=== PATIENT | female | born 1970 | race American Indian/Alaskan Native ===

== ENCOUNTER 2016-07-07 11:49 | Day surgery (SDC) | payer OTHER ==
--- NOTE | 2016-07-07 10:00 | Short Stay Summary ---
Short Stay Documentation Date of service: 07/07/16 - History H&P: obtained from office - Allergies and Medications Current Medications: Allergies No Known Allergies Allergy (Unverified 04/29/15 08:40) Home Medications Medication Instructions Recorded Confirmed Last Taken Type Cyanocobalamin (Vitamin B-12) 2,500 mcg PO DAILY 04/29/15 07/06/16 07/08/14 History [Vitamin B12] Cefuroxime Axetil [Ceftin] 500 mg PO Q12H 07/06/16 07/06/16 Unknown History - Brief post op/procedure progress note Date of procedure: 07/07/16 Pre-op diagnosis: rt renal stone Post-op diagnosis: same Procedure: right rpg cysto, rt 6x28 stent; right ESWL Anesthesia: GETA Findings: large stones mid and lp calyx; smaller in up; none in renal pelvis Surgeon: JEB MARSH Estimated blood loss: minimal Pathology: none Condition: stable - Hospital course Hospital course: or pacu home - Disposition Condition at discharge: Good Disposition: DISCHARGED TO HOME OR SELFCARE Short Stay Discharge Plan Activity: advance as tolerated Diet: advance as tolerated Follow up with: JEB MARSH MD [Staff Physician] - 7 Days
[2016-07-07] MEDS ORDERED: NACL BACTERIOSTATIC INFILTRATI ONE (13:36)
--- NOTE | 2016-07-07 13:52 | Anesthesia Consultation ---
Anesthesia Consult and Med Hx Date of service: 07/07/16 - Airway Anesthetic Teeth Evaluation: Good ROM Head & Neck: Adequate Mental/Hyoid Distance: Adequate Mallampati Class: Class II Intubation Access Assessment: Probably Good - Pulmonary Exam CTA: Yes - Cardiac Exam Cardiac Exam: RRR - Pre-Operative Health Status ASA Pre-Surgery Classification: ASA2 Proposed Anesthetic Plan: General - Pulmonary Hx Smoking: No SOB: Yes (W/EXERTION) Hx Pneumonia: Yes (CHILDHOOD 12 Y/O) Hx Sleep Apnea: No - Cardiovascular System Hx Cardia Arrhythmia: No Hx Heart Murmur: No - Central Nervous System Hx Neuromuscular Disorder: No Hx Seizures: No CVA: No Hx Back Pain: No Hx Psychiatric Problems: No - Gastrointestinal Hx Ulcer: No Hx Gastroesophageal Reflux Disease: No - Endocrine Hx Renal Disease: No Hx End Stage Renal Disease: No Hx Cirrhosis: No Hx Liver Disease: No Hx Insulin Dependent Diabetes: No Hx Non-Insulin Dependent Diabetes: No Hx Thyroid Disease: No Hx Hypothyroidism: No Hx Hyperthyroidism: No - Hematic Hx Anemia: No Hx Sickle Cell Disease: No - Other Systems Hx Alcohol Use: No Hx Substance Use: No Hx Cancer: No Hx Obesity: Yes
--- NOTE | 2016-07-07 13:52 | Anesthesia Day of Surgery ---
Anesthesia Day of Surgery - Day of Surgery Patient Examined: Yes Patient H&P Reviewed: Yes Patient is NPO: Yes
[2016-07-07] MEDS ORDERED: PEPCID PO NR (14:00)
[2016-07-07] MEDS ORDERED: VERSED IV NR (14:00)
[2016-07-07] MEDS ORDERED: LACTATED RINGERS 1,000 ML IV SCH (14:00)
[2016-07-07] MEDS ORDERED: ANCEF/STERILE WATER 2 GM/20 ML IV NR (15:00)
[2016-07-07] MEDS ORDERED: XYLOCAINE MPF 2% ONE (16:58)
[2016-07-07] MEDS ORDERED: DIPRIVAN 10 MG/ML IV ONE (16:58)
[2016-07-07] MEDS ORDERED: DILAUDID ONE (16:58)
[2016-07-07] MEDS ORDERED: WATER FOR IRRIG STERILE IR ONE ×2 (17:05)
[2016-07-07] MEDS ORDERED: OMNIPAQUE 300 MG/50 ML (CATH LAB) IV ONE (17:05)
[2016-07-07] MEDS ORDERED: ZOFRAN ONE (17:53)
[2016-07-07] MEDS ORDERED: DECADRON ONE (17:53)
[2016-07-07] MEDS ORDERED: ePHEDrine SULFATE ONE (18:44)
[2016-07-07 21:19] VITALS: BP 128/80
--- NOTE | 2016-07-15 15:08 | Operative Report ---
UROLOGY OPERATIVE NOTE PREOPERATIVE DIAGNOSIS: Right renal stones. POSTOPERATIVE DIAGNOSIS: Right renal stones with right renal large stone, 10+ mm. SURGEON: Layton Richards MD ANESTHESIA: General. SPECIMENS: None. ESTIMATED BLOOD LOSS: Minimal. COMPLICATIONS: None. PROCEDURE: Right RPG, right cystoscopy, right 6 x 28 double-J stent, right ESWL. FINDINGS: Large stones, mid and lower pole of calyx, small in upper pole, none in renal pelvis. CLINICAL INDICATIONS: The patient was counseled. She was also counseled on percutaneous nephrolithotomy. Decided wanted to try ESWL. On CT scan review, had antibiotics and SCDs. CT scan reviewed. There seemed to be two stones, possibly one more at the mid calyx, could possibly causing intermittent obstruction and the one in the lower pole and then stones in the upper pole. Two lower stones were large but the more central one being about 10-12 mm. It was elected to possibly proceed and target the more central area stone. DESCRIPTION OF PROCEDURE: The patient was transferred to OR suite, supine position, anesthesia, dorsal lithotomy, prepped and draped in standard fashion. A 22 Divehi scope passed. Pancystoscopy demonstrates no tumors. Right UO visualized contrast injected, confirmed position of stones. Next, a guidewire passed 6 x 28 double-J stent passed and confirmed good proximal and distal J. At this point, the patient was positioned to supine position. Biplanar fluoroscopy was used to target the stone with an F2. There was good visualization of the stone. We target the stone that was more in the mid calyx. This was not obstructing. On the retrograde, there was no obstructing renal pelvis stone, just there is the on the lower pole, one large stone in the mid calyx, and then small or something in the upper pole. At this point, 2500 shocks were delivered. Intermittent repositioning done as necessary. At the end of procedure, mild decrease density. The patient was awakened, transferred to PACU in good stable condition. JOB# [id number] ATS/NTS
== END 2016-07-07 21:15 | disposition home or self-care (01) ==
LOC: OR 11:49
PROVIDERS: ATTEND Urology
DX: N20.0 Calculus of kidney (principal); N39.0 Urinary tract infection, site not specified; I10 Essential (primary) hypertension; Z87.891 Personal history of nicotine dependence; Z80.0 Family history of malignant neoplasm of digestive organs; Z82.49 Family history of ischemic heart disease and other diseases of the circulatory system; Z83.3 Family history of diabetes mellitus
CPT/HCPCS: 50590; 52332; 81025; A4217; C1758; C1769; C2617; J0690; J1100; J1170; J2250; J2405; J2704; J7120; Q9967

== ENCOUNTER 2016-08-08 09:00 | Inpatient (IN) | payer OTHER ==
[~2016-08-08 09:00] MED LIST: ANCEF/STERILE WATER 2 GM/20 ML 2 GM/20 ML SYRINGE IV NR; NACL 0.9% 1000 ML 1,000 ML IV SCH
[2016-08-08] MEDS ORDERED: NACL 0.9% 500 ML 500 ML IV SCH (10:00)
[2016-08-08 10:21] LABS: Basophils % (Auto) 1.1 % (0.0-1.8); Eosinophils % (Auto) 3.6 % (0.0-4.3); Hematocrit 31.9 % (30.3-42.9); Hemoglobin 10.3 gm/dl (10.1-14.3); Mean Corpuscular HGB Conc 32 % (30-34); Mean Corpuscular Hemoglobin 27 pg (28-32); Mean Corpuscular Volume 83 fl (79-97); Platelet Count 336 K/mm3 (140-440); Red Blood Count 3.84 M/mm3 (3.65-5.03); Red Cell Distribution Width 14.7 % (13.2-15.2); White Blood Count 5.3 K/mm3 (4.5-11.0)
[2016-08-08 10:22] LABS: INR 0.98 (0.87-1.13)
[2016-08-08 10:23] LABS: Partial Thromboplastin Time 25.7 Sec. (24.2-36.6)
[2016-08-08 10:27] LABS: Alanine Aminotransferase 13 units/L (7-56); Albumin 3.7 g/dL (3.9-5); Albumin/Globulin Ratio 1.1 %; Alkaline Phosphatase 43 units/L (35-129); Anion Gap 16 mmol/L; BUN/Creatinine Ratio 6.66; Bilirubin,Total 0.3 mg/dL (0.1-1.2); Blood Urea Nitrogen 6 mg/dL (7-17); Calcium 8.8 mg/dL (8.4-10.2); Carbon Dioxide 23 mmol/L (22-30); Glucose 104 mg/dL (65-100); Sodium 138 mmol/L (137-145); Total Protein 7.2 g/dL (6.3-8.2)
[2016-08-08] MEDS ORDERED: XYLOCAINE 1% MPF 5 mL INFILTRATI ONE (10:58)
[2016-08-08] MEDS ORDERED: ROCEPHIN 500 MG in NACL 0.9% 50 ML IV NR (11:00)
[2016-08-08] MEDS ORDERED: NACL 0.9% 500 ML 500 ML ONE ×2 (12:00→12:01)
[2016-08-08] MEDS ORDERED: XYLOCAINE 2% INFILTRATI ONE (12:00)
[2016-08-08] MEDS ORDERED: ANCEF/STERILE WATER 2 GM/20 ML 2 GM/20 ML SYRINGE IV ONE (12:09)
[2016-08-08] MEDS: VERSED ONE ×8 (12:27→13:21)
[2016-08-08] MEDS: SUBLIMAZE ONE ×6 (12:27→13:08)
[2016-08-08] MEDS ORDERED: DILAUDID ONE ×2 (12:55→13:08)
[2016-08-08] MEDS ORDERED: NARCAN 0.4 MG/1 ML IV PRN (13:26)
--- NOTE | 2016-08-08 13:34 | Operative Report ---
Operative Report Operative Report: EXAM: ULTRASOUND AND FLUOROSCOPIC GUIDED PLACEMENT OF NEPHROSTOMY TUBE ULTRASOUND AND FLUOROSCOPIC GUIDED PLACEMENT OF NEPHROURETERAL STENT CLINICAL INDICATION: PATIENT WITH OBSTRUCTING RIGHT RENAL STONES DATE: 08/08/2016 PROCEDURE: Following an explanation of the risks, benefits and alternatives; written informed consent was obtained. The patient was brought to the angiographic suite and placed in a position on the examination table. Initial ultrasound survey of the right kidney demonstrated no hydronephrosis. Patient' s right back and flank were prepped and draped in the usual sterile fashion. 1 % lidocaine was used for anesthesia. Initial attempts at ultrasound guidance to cannulate kidney were unsuccessful secondary to the depth. The patient was position on the examination table with Kammer pointed in the AP position. A 15 cm x 21-gauge needle was advanced 11 cm deep subcutaneous tissue and into the renal parenchyma. The needle was directed at the pigtail of a proximal ureteral stent. Upon entry into the kidney, a 0.018 guidewire was then advanced through the needle and advanced on the proximal ureter. The needle was removed and the inner portion of an AccuStick transition dilator was advanced over the guidewire. The stiffener and guidewire were removed and contrast was used to opacified the calyces. A posterior middle calyx was then chosen for cannulation. Using fluoroscopic triangulation, a 15 cm I 21-gauge needle was advanced approximately 11 cm deep through the subcutaneous tissue into her a posterior middle calyx. A 0.018 guidewire was admitted advanced through the needle into the renal pelvis. The needle was removed and AccuStick transition dilator placed over the guidewire. The 0.018 guidewire and inner trocar were removed. Contrast was injected through the transition dilator and the transition dry dilator retracted slightly to position it within the central aspect of the renal pelvis. A 0.035 stiff Glidewire was advanced through the AccuStick transition dilator and down the proximal ureter. The guidewire was advanced to the bladder. A 4 Fijian vertebral catheter was then advanced over the guidewire to the bladder and the Glidewire exchanged for an Amplatz superstiff guidewire. The vertebral catheter was removed. A 7 Fijian 21 cm right hip sheath was then advanced over the Amplatz superstiff guidewire. The trocar was removed and used to place a second 0.035 guidewire [id number] the Amplatz guidewire. Following serial dilation over the guidewire, a 5 Fijian pigtail catheter was then advanced over the guidewire and the distal pigtail placed within the bladder. The guidewire was removed. Additional serial dilation was performed and an 8 Fijian nephrostomy tube was placed over the guidewire and advanced to position the central aspect of the pigtail within the renal pelvis. Gentle injection of contrast was performed to document appropriate positioning through the posterior middle calyx into the renal pelvis. At this point, both catheters were securely fastened of the skin surface using a 2-0 Ethilon suture at the skin surface. The nephroureteral tube was then coiled capped. The nephrostomy tube was placed to dependent drainage. Sterile dressings were then placed over both tubes. Patient tolerated the seizure well. There were no immediate post procedure complications. Given the depth of the kidney, the patient will likely experience significant postoperative pain and a BLEACH MAKER was ordered. IMPRESSION: 1) Ultrasound evaluation of kidney demonstrating no hydronephrosis. 2) Fluoroscopic guided placement of a 5 Fijian nephroureteral stent. 3) Fluoroscopic guided placement of an 8 Fijian nephrostomy tube.
--- NOTE | 2016-08-08 13:36 | Short Stay Summary ---
Short Stay Documentation Date of service: 08/08/16 - History Principal diagnosis: Right nephrolithiasis Past Medical History: other (bilateral nephrolithiasis) Past Surgical History: Other (multiple urologic stone removal procedures) Social history: no significant social history - Allergies and Medications Current Medications: Allergies Sulfa (Sulfonamide Antibiotics) Adverse Reaction (Verified 08/08/16 09:19) Itching,VOMITING Home Medications Medication Instructions Recorded Confirmed Last Taken Type Cefuroxime Axetil [Cefuroxime] 500 mg PO BID 08/08/16 08/08/16 08/07/16 History 500mg Active Medications Cefazolin Sodium (Ancef/Sterile Water 2 Gm/20 Ml) 2 gm in 20 mls @ 80 mls/hr IV PREOP NR PRN Reason: Protocol Stop: 08/08/16 23:00 Sodium Chloride (Nacl 0.9% 500 Ml) 500 mls @ 50 mls/hr IV DIRECT PATSY Stop: 08/08/16 23:59 Last Admin: 08/08/16 11:54 Dose: 50 mls/hr Ceftriaxone Sodium 500 mg/ (Sodium Chloride) 50 mls @ 100 mls/hr IV PREOP NR Stop: 08/08/16 23:59 Last Admin: 08/08/16 12:30 Dose: 50 mls Dextrose/Sodium Chloride (D5ns) 1,000 mls @ 100 mls/hr IV DIRECT PATSY Sodium Chloride (Nacl 0.9% 1000 Ml) 1,000 mls @ 42 mls/hr IV DIRECT PATSY Morphine Sulfate (Morphine Workers Compensation Defense Attorney 30mg/30ml) 0 mg IV DIRECT PATSY PRN Reason: Protocol Naloxone HCl (Narcan 0.4 Mg/1 Ml) 0.1 mg IV Q2MIN PRN PRN Reason: Res Rate </= 8 or 02 SAT < 92% Ondansetron HCl (Zofran) 4 mg IV Q4H PRN PRN Reason: Nausea And Vomiting - Physical exam General appearance: no acute distress, obese HEENT: Atraumatic Lungs: Normal air movement Breasts: deferred Heart: Regular rate Gastrointestinal: normal Female Genitourinary: deferred Rectal Exam: deferred Extremities: no ischemia, No edema Neurological: Normal gait, Normal speech - Brief post op/procedure progress note Date of procedure: 08/08/16 Pre-op diagnosis: Right nephrolithiasis Post-op diagnosis: same Procedure: US and fluoro guided placement of 5 F NUS and 8 F Neph tube Anesthesia: local Surgeon: JAYLAN CABALLERO Estimated blood loss: minimal Pathology: none Condition: stable - Disposition Condition at discharge: Good Disposition: DC/TX SHORT-TERM GEN HOSP INPT Short Stay Discharge Plan Activity: advance as tolerated Weight Bearing Status: Weight Bear as Tolerated Diet: regular Wound: keep clean and dry, per your surgeon's advice Follow up with: PRIMARY CARE, [Primary Care Provider] - 7 Days
[2016-08-08] MEDS ORDERED: MORPHINE PCA 30MG/30ML IV SCH (14:00)
[2016-08-08] MEDS ORDERED: NACL 0.9% 1000 ML 1,000 ML IV SCH (14:00)
[2016-08-08] MEDS: ZOFRAN IV PRN ×2 (18:17→23:45)
[2016-08-08] MEDS: DILAUDID IV PRN ×2 (18:17→22:04)
[2016-08-08] MEDS: D5NS 1,000 ML IV SCH (18:19)
--- NOTE | 2016-08-08 23:44 | History and Physical Report ---
History of Present Illness Date of examination: 08/08/16 Date of admission: 08/08/16 11:22 Chief complaint: Rt Flank pain History of present illness: Direct admit after Nephrostomy tube placement for Rt Ureteric stone and R Hydronephrosis.For surgical removal of Ureteric stone tomorrow by Urology.No fever or chills.Pain 6/10.Better after Nephrostomy tube placement. Past History Past Medical History: No medical history, arthritis, other (bilateral nephrolithiasis) Past Surgical History: Other (multiple urologic stone removal procedures) Social history: no significant social history Medications and Allergies Allergies Allergy/AdvReac Type Severity Reaction Status Date / Time Sulfa (Sulfonamide AdvReac Itching,VOM Verified 08/08/16 09:19 Antibiotics) ITING Home Medications Medication Instructions Recorded Confirmed Last Taken Type Cefuroxime Axetil [Cefuroxime] 500 mg PO BID 08/08/16 08/08/16 08/07/16 History 500mg Active Meds: Active Medications Hydromorphone HCl (Dilaudid) 1 mg IV Q3H PRN PRN Reason: Pain , Severe (7-10) Last Admin: 08/08/16 18:17 Dose: 1 mg Hydromorphone HCl (Dilaudid) 2 mg IV Q3H PRN PRN Reason: Pain , Severe (7-10) Last Admin: 08/08/16 22:04 Dose: 2 mg Sodium Chloride (Nacl 0.9% 500 Ml) 500 mls @ 50 mls/hr IV DIRECT PATSY Stop: 08/08/16 23:59 Last Admin: 08/08/16 11:54 Dose: 50 mls/hr Ceftriaxone Sodium 500 mg/ (Sodium Chloride) 50 mls @ 100 mls/hr IV PREOP NR Stop: 08/08/16 23:59 Last Admin: 08/08/16 12:30 Dose: 50 mls Dextrose/Sodium Chloride (D5ns) 1,000 mls @ 100 mls/hr IV DIRECT PATSY Last Admin: 08/08/16 18:19 Dose: 100 mls/hr Ondansetron HCl (Zofran) 4 mg IV Q4H PRN PRN Reason: Nausea And Vomiting Last Admin: 08/08/16 18:17 Dose: 4 mg Review of Systems All systems: negative Exam - Constitutional Vitals: Temp Pulse Resp BP Pulse Ox 96.9 F L 79 20 117/65 99 08/08/16 20:00 08/08/16 20:00 08/08/16 22:04 08/08/16 20:00 08/08/16 20:00 General appearance: Present: no acute distress, well-nourished - EENT Eyes: Present: PERRL ENT: hearing intact, clear oral mucosa - Neck Neck: Present: supple, normal ROM - Respiratory Respiratory effort: normal Respiratory: bilateral: CTA - Cardiovascular Heart Sounds: Present: S1 & S2. Absent: rub, click - Extremities Extremities: pulses symmetrical, No edema Peripheral Pulses: within normal limits - Abdominal General gastrointestinal: Present: soft, non-tender, non-distended, normal bowel sounds Female genitourinary: Present: normal - Integumentary Integumentary: Present: clear, warm, dry - Musculoskeletal Musculoskeletal: gait normal, strength equal bilaterally - Psychiatric Psychiatric: appropriate mood/affect, intact judgment & insight - Neurologic Neurologic: CNII-XII intact, moves all extremities Results - Labs CBC & Chem 7: 08/08/16 09:48 08/08/16 09:48 Labs: Laboratory Last Values WBC 5.3 K/mm3 (4.5-11.0) 08/08/16 09:48 RBC 3.84 M/mm3 (3.65-5.03) 08/08/16 09:48 Hgb 10.3 gm/dl (10.1-14.3) 08/08/16 09:48 Hct 31.9 % (30.3-42.9) 08/08/16 09:48 MCV 83 fl (79-97) 08/08/16 09:48 MCH 27 pg (28-32) L 08/08/16 09:48 MCHC 32 % (30-34) 08/08/16 09:48 RDW 14.7 % (13.2-15.2) 08/08/16 09:48 Plt Count 336 K/mm3 (140-440) 08/08/16 09:48 Lymph % (Auto) 24.1 % (13.4-35.0) 08/08/16 09:48 Gregory % (Auto) 8.0 % (0.0-7.3) H 08/08/16 09:48 Eos % (Auto) 3.6 % (0.0-4.3) 08/08/16 09:48 Baso % (Auto) 1.1 % (0.0-1.8) 08/08/16 09:48 Lymph # 1.3 K/mm3 (1.2-5.4) 08/08/16 09:48 Gregory # 0.4 K/mm3 (0.0-0.8) 08/08/16 09:48 Eos # 0.2 K/mm3 (0.0-0.4) 08/08/16 09:48 Baso # 0.1 K/mm3 (0.0-0.1) 08/08/16 09:48 Seg Neutrophils % 63.2 % (40.0-70.0) 08/08/16 09:48 Seg Neutrophils # 3.4 K/mm3 (1.8-7.7) 08/08/16 09:48 PT 12.9 Sec. (12.2-14.9) 08/08/16 09:48 INR 0.98 (0.87-1.13) 08/08/16 09:48 APTT 25.7 Sec. (24.2-36.6) 08/08/16 09:48 Sodium 138 mmol/L (137-145) 08/08/16 09:48 Potassium 4.0 mmol/L (3.6-5.0) 08/08/16 09:48 Chloride 103.0 mmol/L (98-107) 08/08/16 09:48 Carbon Dioxide 23 mmol/L (22-30) 08/08/16 09:48 Anion Gap 16 mmol/L 08/08/16 09:48 BUN 6 mg/dL (7-17) L 08/08/16 09:48 Creatinine 0.9 mg/dL (0.7-1.2) 08/08/16 09:48 Estimated GFR > 60 ml/min 08/08/16 09:48 BUN/Creatinine Ratio 6.66 % 08/08/16 09:48 Glucose 104 mg/dL (65-100) H 08/08/16 09:48 Calcium 8.8 mg/dL (8.4-10.2) 08/08/16 09:48 Total Bilirubin 0.3 mg/dL (0.1-1.2) 08/08/16 09:48 AST 13 units/L (5-40) 08/08/16 09:48 ALT 13 units/L (7-56) 08/08/16 09:48 Alkaline Phosphatase 43 units/L (35-129) 08/08/16 09:48 Total Protein 7.2 g/dL (6.3-8.2) 08/08/16 09:48 Albumin 3.7 g/dL (3.9-5) L 08/08/16 09:48 Albumin/Globulin Ratio 1.1 % 08/08/16 09:48 HCG, Qual Negative (Negative) 08/08/16 09:48 Assessment and Plan Advance Directives: Yes VTE prophylaxis?: Chemical Plan of care discussed with patient/family: Yes - Patient Problems (1) Hydronephrosis with renal calculous obstruction Current Visit: Yes Status: Acute Plan to address problem: S/p Nephrostomy tube placement.For Urologic procedure tomorrow by Dr Richards. (2) Nephrostomy status Current Visit: Yes Status: Acute Plan to address problem: Had Nephrostomy tube-right placement today by Dr Recinos. (3) DVT prophylaxis Current Visit: Yes Status: Acute Plan to address problem: On Lovenox
[2016-08-09] MEDS: D5NS 1,000 ML IV SCH ×2 (04:51→22:42)
[2016-08-09] MEDS: DILAUDID IV PRN ×3 (04:59→20:09)
--- NOTE | 2016-08-09 08:07 | Admit Criteria Form ---
Admission Criteria Documentation: RENAL COLIC AND KIDNEY STONES Clinical Indications for Admission to Inpatient Care ( Place 'X' for any and all applicable criteria): Admission is indicated for ANY ONE of the following (1)(2)(3)(4): [X]I. Inpatient admission required rather than observation care (Also use Renal Colic and Kidney Stones: Observation Care Criteria as appropriate) because of ANY ONE of the following: [ ]a) Severe pain requiring acute inpatient management [ ]b) Urinary tract infection identified [ ]c) Vomiting that is severe or persistent [ ]d) IV fluid required rather than oral rehydration to replace significant ongoing (eg, for greater than 24 hours) losses (greater than 200 mL/hr or 3 L/m2 per day) [X]e) Percutaneous or open drainage (eg, abscess, biliary tract) procedures [ ]f) Other condition, treatment or monitoring requiring inpatient admission [ ]II. Impending acute renal failure [ ]III. Bilateral obstruction [ ]IV. Single kidney with obstruction [ ]V. Transplanted kidney with obstruction [ ]. Possible open surgical procedure needed (eg, pyonephrosis, stone removal not amendable to other means) [ ]VII. Hemodynamic instability Extended stay beyond goal length of stay may be needed for(2)(3)(31): [ ]a) Failed initial stone removal (32) [ ]b) Pyonephrosis [ ]c) Obstructive uropathy with urinary tract infection [ ]d) Procedure complications [ ]e) Comorbidities (22) The original [facility] content created by [employer] has been revised. The portions of the content which have been revised are identified through the use of italic text or in bold, and [facility] has neither reviewed nor approved the modified material. All other unmodified content is copyright [facility]. Please see references footnoted in the original [facility] edition 2016 Admission Criteria Met: Yes
[2016-08-09 12:07] LABS: Basophils % (Auto) 0.4 % (0.0-1.8); Eosinophils % (Auto) 1.3 % (0.0-4.3); Hematocrit 29.3 % (30.3-42.9); Hemoglobin 9.4 gm/dl (10.1-14.3); Mean Corpuscular HGB Conc 32 % (30-34); Mean Corpuscular Hemoglobin 27 pg (28-32); Mean Corpuscular Volume 84 fl (79-97); Platelet Count 300 K/mm3 (140-440); Red Blood Count 3.49 M/mm3 (3.65-5.03); Red Cell Distribution Width 14.7 % (13.2-15.2); White Blood Count 7.4 K/mm3 (4.5-11.0)
[2016-08-09 12:22] LABS: Anion Gap 16 mmol/L; BUN/Creatinine Ratio 6.25; Blood Urea Nitrogen 5 mg/dL (7-17); Calcium 8.3 mg/dL (8.4-10.2); Carbon Dioxide 25 mmol/L (22-30); Chloride 102.9 mmol/L (98-107); Glucose 108 mg/dL (65-100); Sodium 140 mmol/L (137-145)
--- NOTE | 2016-08-09 13:05 | Anesthesia Day of Surgery ---
Anesthesia Day of Surgery - Day of Surgery Patient Examined: Yes Patient H&P Reviewed: Yes Patient is NPO: Yes
--- NOTE | 2016-08-09 13:08 | Anesthesia Consultation ---
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 No prior anesthesia complications
[2016-08-09] MEDS ORDERED: ZEMURON IV ONE (13:37)
[2016-08-09] MEDS ORDERED: XYLOCAINE MPF 2% ONE (13:37)
[2016-08-09] MEDS ORDERED: DECADRON ONE (13:37)
[2016-08-09] MEDS ORDERED: NACL 0.9% 500 ML 500 ML IV NR (13:43)
[2016-08-09] MEDS ORDERED: NACL 0.9% 1000 ML 1,000 ML IV SCH (14:00)
[2016-08-09] MEDS ORDERED: PEPCID PO NR (14:00)
[2016-08-09] MEDS ORDERED: VERSED IV NR (14:00)
[2016-08-09] MEDS ORDERED: MINERAL OIL TOPICAL LIGHT TP ONE (15:35)
--- NOTE | 2016-08-09 16:39 | Event Note ---
attempted to see patient 3x, she was in OR, will return tomorrow
--- NOTE | 2016-08-09 17:59 | Post Operative Note ---
Date of procedure: 08/09/16 Pre-op diagnosis: right renal stones Post-op diagnosis: same Findings: right renal stones Procedure: rt pnl Anesthesia: HARITHA Surgeon: JEB MARSH Estimated blood loss: minimal Pathology: list (stone) Specimen disposition: to lab Condition: stable Disposition: PACU
--- NOTE | 2016-08-09 18:37 | Post Anesthesia Evaluation ---
- Post Anesthesia Evaluation Patient Participated: Yes Airway Patent: Yes Stable Respiratory Function: Yes Temp > 96.8F: Yes Pain Manageable: Yes Adequeate Hydration: Yes Anesthesia Complications: No Block Receding Appropriately: Not Applicable
[2016-08-09 19:13] LABS: Basophils % (Auto) 0.4 % (0.0-1.8); Eosinophils % (Auto) 0.4 % (0.0-4.3); Hematocrit 33.7 % (30.3-42.9); Hemoglobin 10.6 gm/dl (10.1-14.3); Mean Corpuscular HGB Conc 31 % (30-34); Mean Corpuscular Hemoglobin 27 pg (28-32); Mean Corpuscular Volume 86 fl (79-97); Platelet Count 286 K/mm3 (140-440); Red Blood Count 3.93 M/mm3 (3.65-5.03); Red Cell Distribution Width 15.1 % (13.2-15.2); White Blood Count 10.7 K/mm3 (4.5-11.0)
[2016-08-09 19:29] LABS: Anion Gap 18 mmol/L; BUN/Creatinine Ratio 6.25; Blood Urea Nitrogen 5 mg/dL (7-17); Calcium 7.9 mg/dL (8.4-10.2); Carbon Dioxide 22 mmol/L (22-30); Chloride 105.3 mmol/L (98-107); Glucose 114 mg/dL (65-100); Potassium 4.4 mmol/L (3.6-5.0); Sodium 141 mmol/L (137-145)
[2016-08-09] MEDS: ROCEPHIN/NS 2 GM/100 ML 2 GM/100 ML BAG IV SCH (19:56)
[2016-08-09] MEDS ORDERED: CHLORASEPTIC MM PRN (20:15)
[2016-08-09 21:24] LABS: Basophils % (Auto) 0.2 % (0.0-1.8); Eosinophils % (Auto) 0.3 % (0.0-4.3); Hematocrit 31.7 % (30.3-42.9); Hemoglobin 10.3 gm/dl (10.1-14.3); Mean Corpuscular HGB Conc 32 % (30-34); Mean Corpuscular Hemoglobin 27 pg (28-32); Mean Corpuscular Volume 84 fl (79-97); Platelet Count 290 K/mm3 (140-440); Red Blood Count 3.78 M/mm3 (3.65-5.03); Red Cell Distribution Width 14.9 % (13.2-15.2); White Blood Count 10.1 K/mm3 (4.5-11.0)
[2016-08-09 21:41] LABS: Anion Gap 18 mmol/L; BUN/Creatinine Ratio 6.25; Blood Urea Nitrogen 5 mg/dL (7-17); Calcium 7.9 mg/dL (8.4-10.2); Carbon Dioxide 22 mmol/L (22-30); Chloride 104.6 mmol/L (98-107); Glucose 121 mg/dL (65-100); Potassium 3.9 mmol/L (3.6-5.0); Sodium 141 mmol/L (137-145)
[2016-08-09] MEDS: PYRIDIUM PO SCH (22:38)
[2016-08-10] MEDS: DILAUDID IV PRN ×6 (00:36→19:58)
[2016-08-10 06:42] LABS: Basophils % (Auto) 0.6 % (0.0-1.8); Hematocrit 32.6 % (30.3-42.9); Hemoglobin 10.5 gm/dl (10.1-14.3); Mean Corpuscular HGB Conc 32 % (30-34); Mean Corpuscular Hemoglobin 27 pg (28-32); Mean Corpuscular Volume 84 fl (79-97); Platelet Count 284 K/mm3 (140-440); Red Blood Count 3.86 M/mm3 (3.65-5.03); Red Cell Distribution Width 15.1 % (13.2-15.2); White Blood Count 10.4 K/mm3 (4.5-11.0)
[2016-08-10] MEDS: PYRIDIUM PO SCH ×3 (06:50→21:13)
[2016-08-10 07:00] LABS: Chloride 103.4 mmol/L (98-107); Potassium 4.5 mmol/L (3.6-5.0); Sodium 137 mmol/L (137-145)
[2016-08-10 07:12] LABS: Anion Gap 13 mmol/L; BUN/Creatinine Ratio 4.44; Blood Urea Nitrogen 4 mg/dL (7-17); Calcium 8.2 mg/dL (8.4-10.2); Carbon Dioxide 25 mmol/L (22-30); Glucose 122 mg/dL (65-100)
--- NOTE | 2016-08-10 07:32 | Progress Note ---
Assessment and Plan laury renal stones -s/p right pnl - d/c wire and amezquita - ambulate - pt can be discharged home today / tomorrow from urology standpoint if cont to do well Subjective Date of service: 08/10/16 Principal diagnosis: Right nephrolithiasis Interval history: stent catht neph pain Objective - Constitutional Vitals: Vital Signs - 12hr 08/09/16 08/09/16 08/10/16 20:00 23:41 04:00 Temperature 98.8 F 99.0 F 98.6 F Pulse Rate [ 105 H 104 H 110 H Apical] Respiratory 22 22 22 Rate Blood Pressure 124/76 108/70 112/68 [Left Arm] O2 Sat by Pulse 98 99 96 Oximetry - Gastrointestinal Rectal Exam: other (back neph tube clear yellow tube) - Genitourinary Female genitourinary: other (cath clear) - Labs CBC & Chem 7: 08/10/16 06:22 08/10/16 06:22 Labs: Abnormal lab results 08/09/16 08/09/16 08/09/16 Range/Units 11:35 11:35 11:35 RBC 3.49 L (3.65-5.03) M/mm3 Hgb 9.4 L (10.1-14.3) gm/dl Hct 29.3 L (30.3-42.9) % MCH 27 L (28-32) pg Lymph % (Auto) (13.4-35.0) % [place] % (Auto) 8.3 H (0.0-7.3) % Lymph # 1.1 L (1.2-5.4) K/mm3 [place] # (0.0-0.8) K/mm3 Seg Neutrophils % 74.8 H (40.0-70.0) % Seg Neutrophils # (1.8-7.7) K/mm3 BUN 5 L (7-17) mg/dL Glucose 108 H (65-100) mg/dL Calcium 8.3 L (8.4-10.2) mg/dL Crossmatch See Detail 08/09/16 08/09/16 08/09/16 Range/Units 18:55 18:55 20:52 RBC (3.65-5.03) M/mm3 Hgb (10.1-14.3) gm/dl Hct (30.3-42.9) % MCH 27 L 27 L (28-32) pg Lymph % (Auto) 6.7 L 7.4 L (13.4-35.0) % [place] % (Auto) (0.0-7.3) % Lymph # 0.7 L 0.7 L (1.2-5.4) K/mm3 [place] # (0.0-0.8) K/mm3 Seg Neutrophils % 87.3 H 86.7 H (40.0-70.0) % Seg Neutrophils # 9.3 H 8.8 H (1.8-7.7) K/mm3 BUN 5 L (7-17) mg/dL Glucose 114 H (65-100) mg/dL Calcium 7.9 L (8.4-10.2) mg/dL Crossmatch 08/09/16 08/10/16 08/10/16 Range/Units 20:52 06:22 06:22 RBC (3.65-5.03) M/mm3 Hgb (10.1-14.3) gm/dl Hct (30.3-42.9) % MCH 27 L (28-32) pg Lymph % (Auto) 9.6 L (13.4-35.0) % [place] % (Auto) 8.2 H (0.0-7.3) % Lymph # 1.0 L (1.2-5.4) K/mm3 [place] # 0.9 H (0.0-0.8) K/mm3 Seg Neutrophils % 79.6 H (40.0-70.0) % Seg Neutrophils # 8.3 H (1.8-7.7) K/mm3 BUN 5 L 4 L (7-17) mg/dL Glucose 121 H 122 H (65-100) mg/dL Calcium 7.9 L 8.2 L (8.4-10.2) mg/dL Crossmatch
[2016-08-10] MEDS: DITROPAN PO SCH ×3 (08:30→21:13)
[2016-08-10] MEDS: ROCEPHIN/NS 2 GM/100 ML 2 GM/100 ML BAG IV SCH (09:22)
--- NOTE | 2016-08-10 09:47 | Fluoroscopy Report ---
Operative right nephrostomy: Initial image demonstrates the presence of a percutaneous right nephrostomy balloon with 2 guidewires extending into the ureter. There is a faint opacity in the central collecting system adjacent to the balloon. A subsequent images of demonstrates ill-defined contrast in the region of the kidney. This no definite calculus identified.
--- NOTE | 2016-08-10 15:04 | Discharge Summary ---
Providers - Providers Date of Admission: 08/10/16 13:00 Attending physician: JEREMY MOORE MD 08/09/16 09:09 Consult to Physician [CONS] Routine Consulting Provider: JEB MARSH Reason For Exam: R Ureteric stone Place consult to:: MARVIN ALMANZA Notified:: DR MARSH Phone number called:: [phone] Was contact made?: Yes If yes, spoke with:: JENNIFER Time called:: 10:21 Primary care physician: [employer]OR Hospitalization Condition: Good Procedures: Right Percutaneous nephrolithotomy Hospital course: 45-year-old woman who was a direct admits by the request of urology service for right-sided nephrolithiasis, for which she went on to have right-sided percutaneous nephrolithotomy. Patient clinically improves her labs and vital signs where unremarkable her hospital stay. Jones was discontinued and she was discharged in improved condition Discharge diagnosis 1. Renal calculus obstruction with hydronephrosis 2. Obstructive nephrolithiasis Disposition: DISCHARGED TO HOME OR SELFCARE Time spent for discharge: 35 minutes Core Measure Documentation - Palliative Care Palliative Care/ Comfort Measures: Not Applicable - Core Measures Any of the following diagnoses?: none Exam - Constitutional Vitals: Temp Pulse Resp BP Pulse Ox 99.7 F H 113 H 20 113/73 90 08/10/16 08:00 08/10/16 08:00 08/10/16 13:30 08/10/16 08:00 08/10/16 08:00 General appearance: Present: no acute distress, well-nourished - EENT Eyes: Present: PERRL ENT: hearing intact, clear oral mucosa - Neck Neck: Present: supple, normal ROM - Respiratory Respiratory effort: normal Respiratory: bilateral: CTA - Cardiovascular Heart Sounds: Present: S1 & S2. Absent: rub, click - Extremities Extremities: pulses symmetrical, No edema Peripheral Pulses: within normal limits - Abdominal General gastrointestinal: Present: soft, non-tender, non-distended, normal bowel sounds Female genitourinary: Present: normal - Integumentary Integumentary: Present: clear, warm, dry - Musculoskeletal Musculoskeletal: gait normal, strength equal bilaterally - Psychiatric Psychiatric: appropriate mood/affect, intact judgment & insight - Neurologic Neurologic: CNII-XII intact, moves all extremities Plan Follow up with: PRIMARY CAREMD [Primary Care Provider] - 7 Days Prescriptions: Oxybutynin [Ditropan] 5 mg PO TID #90 tablet Phenazopyridine [Pyridium] 200 mg PO Q8HR PRN #90 tablet PRN Reason: dysuria
--- NOTE | 2016-08-10 16:19 | Progress Note ---
Assessment and Plan Assessment and plan: 45-year-old woman who was a direct admits by the request of urology service after R nephrostomy tube placement by IR, for right-sided nephrolithiasis, for which she went on to have right-sided percutaneous nephrolithotomy. Patient clinically improves her labs and vital signs where unremarkable her hospital stay. Jones was discontinued 1. Obstructive uropathy Status post nephrostomy tube and right percutaneous nephrolithotomy, continue pain control, full he has been discontinued, Tentative discharge home tomorrow if pain is better controlled History Interval history: Complaining of frequent urination since Jones catheter, continues to have waning right-sided flank pain Hospitalist Physical - Physical exam Narrative exam: General: Moderate distress due to pain HEENT: MMM, EOMI cardiac: S1-S2 heard lungs: clear to auscultation, abdomen: soft, nontender, nondistended bowel sounds positive Right nephrostomy tube draining clear yellow urine extremities: no edema clubbing or cyanosis Skin: no rash or lesion Neuro: no focal deficit Psych: appropriate behavior and mood, cognition intact - Constitutional Vitals: Temp Pulse Resp BP Pulse Ox 99.7 F H 113 H 20 113/73 90 08/10/16 08:00 08/10/16 08:00 08/10/16 13:30 08/10/16 08:00 08/10/16 08:00 General appearance: Present: no acute distress, well-nourished Results - Labs CBC & Chem 7: 08/10/16 06:22 08/10/16 06:22 Labs: Laboratory Last Values WBC 10.4 K/mm3 (4.5-11.0) 08/10/16 06:22 RBC 3.86 M/mm3 (3.65-5.03) 08/10/16 06:22 Hgb 10.5 gm/dl (10.1-14.3) 08/10/16 06:22 Hct 32.6 % (30.3-42.9) 08/10/16 06:22 MCV 84 fl (79-97) 08/10/16 06:22 MCH 27 pg (28-32) L 08/10/16 06:22 MCHC 32 % (30-34) 08/10/16 06:22 RDW 15.1 % (13.2-15.2) 08/10/16 06:22 Plt Count 284 K/mm3 (140-440) 08/10/16 06:22 Lymph % (Auto) 9.6 % (13.4-35.0) L 08/10/16 06:22 Scott % (Auto) 8.2 % (0.0-7.3) H 08/10/16 06:22 Eos % (Auto) 2.0 % (0.0-4.3) 08/10/16 06:22 Baso % (Auto) 0.6 % (0.0-1.8) 08/10/16 06:22 Lymph # 1.0 K/mm3 (1.2-5.4) L 08/10/16 06:22 Scott # 0.9 K/mm3 (0.0-0.8) H 08/10/16 06:22 Eos # 0.2 K/mm3 (0.0-0.4) 08/10/16 06:22 Baso # 0.1 K/mm3 (0.0-0.1) 08/10/16 06:22 Seg Neutrophils % 79.6 % (40.0-70.0) H 08/10/16 06:22 Seg Neutrophils # 8.3 K/mm3 (1.8-7.7) H 08/10/16 06:22 PT 12.9 Sec. (12.2-14.9) 08/08/16 09:48 INR 0.98 (0.87-1.13) 08/08/16 09:48 APTT 25.7 Sec. (24.2-36.6) 08/08/16 09:48 Sodium 137 mmol/L (137-145) 08/10/16 06:22 Potassium 4.5 mmol/L (3.6-5.0) 08/10/16 06:22 Chloride 103.4 mmol/L (98-107) 08/10/16 06:22 Carbon Dioxide 25 mmol/L (22-30) 08/10/16 06:22 Anion Gap 13 mmol/L 08/10/16 06:22 BUN 4 mg/dL (7-17) L 08/10/16 06:22 Creatinine 0.9 mg/dL (0.7-1.2) 08/10/16 06:22 Estimated GFR > 60 ml/min 08/10/16 06:22 BUN/Creatinine Ratio 4.44 % 08/10/16 06:22 Glucose 122 mg/dL (65-100) H 08/10/16 06:22 Calcium 8.2 mg/dL (8.4-10.2) L 08/10/16 06:22 Total Bilirubin 0.3 mg/dL (0.1-1.2) 08/08/16 09:48 AST 13 units/L (5-40) 08/08/16 09:48 ALT 13 units/L (7-56) 08/08/16 09:48 Alkaline Phosphatase 43 units/L (35-129) 08/08/16 09:48 Total Protein 7.2 g/dL (6.3-8.2) 08/08/16 09:48 Albumin 3.7 g/dL (3.9-5) L 08/08/16 09:48 Albumin/Globulin Ratio 1.1 % 08/08/16 09:48 HCG, Qual Negative (Negative) 08/08/16 09:48 Blood Type B POSITIVE 08/09/16 11:35 Antibody Screen Negative 08/09/16 11:35 Crossmatch See Detail 08/09/16 11:35
[2016-08-10] MEDS: D5NS 1,000 ML IV SCH (19:24)
[2016-08-11] MEDS: PYRIDIUM PO SCH ×2 (06:25→13:49)
[2016-08-11] MEDS: DITROPAN PO SCH ×2 (08:36→13:49)
[2016-08-11] MEDS: DILAUDID IV PRN ×2 (09:42→13:48)
[2016-08-11] MEDS: ROCEPHIN/NS 2 GM/100 ML 2 GM/100 ML BAG IV SCH (09:43)
[2016-08-11 16:29] VITALS: BP 109/61
== END 2016-08-11 17:33 | disposition home or self-care (01) | DRG 660 ==
LOC: OPU 09:00 → 3A 11:22 → OBSVTOIN 08-10 13:00
PROVIDERS: ADMIT Internal Medicine; ATTEND Internal Medicine
PROC: 0T763DZ Dilation of Right Ureter with Intraluminal Device, Percutaneous Approach (ICD-10-PCS; principal; 2016-08-08)
PROC: 0TH Urinary System, Insertion (ICD-10-PCS; 2016-08-08)
PROC: 30233N1 Transfusion of Nonautologous Red Blood Cells into Peripheral Vein, Percutaneous Approach (ICD-10-PCS; 2016-08-08)
PROC: 0TC03ZZ Extirpation of Matter from Right Kidney, Percutaneous Approach (ICD-10-PCS; 2016-08-09)
DX: N13.2 Hydronephrosis with renal and ureteral calculous obstruction (principal); M19.90 Unspecified osteoarthritis, unspecified site; R82.99 Other abnormal findings in urine; Z88.2 Allergy status to sulfonamides; Z93.6 Other artificial openings of urinary tract status; Z71.3 Dietary counseling and surveillance; Z83.3 Family history of diabetes mellitus; Z80.0 Family history of malignant neoplasm of digestive organs; Z82.3 Family history of stroke; Z87.891 Personal history of nicotine dependence
CPT/HCPCS: 36415; 50432; 50433; 80048; 80053; 82365; 84703; 85025; 85610; 85730; 86850; 86900; 86901; 86920; C1726; C1729; C1751; C1769; C1894; G0378; J0690; J0696; J1100; J1170; J2250; J2270; J2405; J3010; J7030; J7040; J7042; P9016; Q9967